=== PATIENT | male | born 1960 | race Caucasian/White ===

== ENCOUNTER 2017-01-05 10:04 | Day surgery (SDC) | payer OTHER ==
[~2017-01-05 10:04] MED LIST: ROXICODONE5 MG PO
[2017-01-05] MEDS ORDERED: ASPIRIN81 M2 PO (10:43)
[2017-01-05] MEDS ORDERED: COLCRYS0.6 MG PO (10:46)
[2017-01-05] MEDS ORDERED: AMLODIPINE-BEN1 EACH PO (10:46)
[2017-01-05] MEDS ORDERED: PROBENECID500 MG PO (10:46)
[2017-01-05] MEDS ORDERED: LEVOTHYROXINE150 MCG PO (10:47)
[2017-01-05 11:29] LABS: ANION GAP 8 MEQ/L (2-14); CHLORIDE 105 MEQ/L (99-109); POTASSIUM 4.3 MEQ/L (3.7-5.4); SAMPLE HEMOLYSIS CHECK 0; SAMPLE ICTERIC CHECK 0; SAMPLE LIPEMIA CHECK 0; SODIUM 139 MEQ/L (136-147)
[2017-01-05 11:35] LABS: GFR ESTIMATE (CALCULATED) > 59 mL/min/; GLUCOSE 115 mg/dL (70-99); UREA NITROGEN (BUN) 19 mg/dL (9-23)
[2017-01-05 13:11] LABS: BASE EXCESS -0.3 mEq/L (-3 to +3); BICARBONATE 26.4 mEq/L (22-26); METHEMOGLOBIN 1.6 % (0-1.5); PCO2 50 mm Hg (35-45); PO2 40 mm Hg (80-100); pH 7.33 (7.35-7.45)
[2017-01-05 13:12] LABS: DEVICE NC; O2 FLOW 2 L/MIN; SITE PA; TOTAL RESP RATE 14 resp/min
[2017-01-05 13:30] LABS: BASE EXCESS -0.2 mEq/L (-3 to +3); BICARBONATE 26.8 mEq/L (22-26); CARBOXY HGB 2.2 % (0-5); DEVICE NC; HEMOGLOBIN 14 (12.5-16.6); METHEMOGLOBIN 1.6 % (0-1.5); O2 FLOW 2 L/MIN; PCO2 52 mm Hg (35-45); PO2 40 mm Hg (80-100); TOTAL RESP RATE 14 resp/min; pH 7.32 (7.35-7.45)
== END 2017-01-05 17:45 | disposition home or self-care (01) ==
LOC: CATH 10:04
PROVIDERS: Internal Medicine Cardiovascular Disease
DX: R07.89 Other chest pain (principal); R06.02 Shortness of breath; I25.10 Atherosclerotic heart disease of native coronary artery without angina pectoris; I10 Essential (primary) hypertension; E78.5 Hyperlipidemia, unspecified; E03.9 Hypothyroidism, unspecified; E06.3 Autoimmune thyroiditis; M10.9 Gout, unspecified; Z87.891 Personal history of nicotine dependence; Z87.898 Personal history of other specified conditions
CPT/HCPCS: 36600; 80048; 82803; 85347; C1769; C1887; C1894; J1644; J2250; J3010; J7050